=== PATIENT | female | born 1985 | race American Indian/Alaskan Native ===

== ENCOUNTER 2019-09-01 15:06 | Emergency (ER) | payer OTHER ==
[2019-09-01 16:18] LABS: Basophils % (Auto) 0.4 % (0.0-1.8); Eosinophils # (Auto) 0.1 K/mm3 (0.0-0.4); Eosinophils % (Auto) 0.8 % (0.0-4.3); Hematocrit 36.2 % (30.3-42.9); Hemoglobin 11.8 gm/dl (10.1-14.3); Lymphocytes # (Auto) 3.2 K/mm3 (1.2-5.4); Lymphocytes % (Auto) 33.3 % (13.4-35.0); Mean Corpuscular HGB Conc 33 % (30-34); Mean Corpuscular Volume 87 fl (79-97); Monocytes # (Auto) 0.5 K/mm3 (0.0-0.8); Monocytes % (Auto) 5.1 % (0.0-7.3); Platelet Count 301 K/mm3 (140-440); Red Blood Count 4.16 M/mm3 (3.65-5.03); Red Cell Distribution Width 14.1 % (13.2-15.2)
[2019-09-01 16:38] LABS: BUN/Creatinine Ratio 10; Blood Urea Nitrogen 10 mg/dL (7-17); Calcium 9.5 mg/dL (8.4-10.2); Hemolysis Index 1
--- NOTE | 2019-09-01 20:09 | Emergency Department Report ---
ED General Adult HPI - General Chief complaint: Extremity Injury, Upper Stated complaint: NUMB/HBP Time Seen by Provider: 09/01/19 20:05 Source: patient, RN notes reviewed Mode of arrival: Ambulatory Limitations: No Limitations - History of Present Illness Initial comments: The patient is a pleasant 34-year-old female. She is not known to myself previo usly. She does not have a primary care doctor. She states that she is not . She states that she has not delivered or given within the past 6 weeks. She is right-hand dominant. She presents to the ER with a complaint of nontraumatic resolved bilateral upper forearm dysesthesia. This started at around 230 this afternoon. It is now resolved. She also describes a sensation of "cloudiness and heaviness." This was a global sensation. It is now resolved. She denies headache, neck pain, chest pain, abdominal pain, shortness of breath. She also denied focal extremity weakness and or numbness. Her symptoms are now resolved. She does not have any complaints at this time. She feels improved. No recent heavy lifting. -: Gradual, hour(s) Location: left, right, upper extremity Consistency: now resolved Improves with: none Worsens with: none Associated Symptoms: denies other symptoms - Related Data Allergies Allergy/AdvReac Type Severity Reaction Status Date / Time No Known Allergies Allergy Verified 09/01/19 15:15 ED Review of Systems ROS: Stated complaint: NUMB/HBP Other details as noted in HPI Constitutional: see HPI Eyes: as per HPI ENT: as per HPI Respiratory: see HPI Cardiovascular: as per HPI Endocrine: see HPI Gastrointestinal: as per HPI Genitourinary: as per HPI Musculoskeletal: as per HPI Skin: as per HPI Neurological: as per HPI Psychiatric: as per HPI Hematological/Lymphatic: as per HPI ED Past Medical Hx - Social History Smoking Status: Never Smoker Substance Use Type: None ED Physical Exam - General Limitations: No Limitations General appearance: alert, in no apparent distress, obese - Head Head exam: Present: atraumatic, normocephalic - Eye Eye exam: Present: normal appearance, PERRL, EOMI, other (Visual acuity intact to finger counting, color perception, reading at a close distance). Absent: nystagmus - ENT ENT exam: Present: normal exam, normal orophraynx, mucous membranes moist, normal external ear exam - Neck Neck exam: Present: normal inspection, full ROM. Absent: tenderness, meningismus - Respiratory Respiratory exam: Present: normal lung sounds bilaterally. Absent: respiratory distress - Cardiovascular Cardiovascular Exam: Present: regular rate, normal rhythm, normal heart sounds. Absent: bradycardia, tachycardia, irregular rhythm, systolic murmur, diastolic murmur, rubs, gallop - GI/Abdominal GI/Abdominal exam: Present: soft. Absent: distended, tenderness, guarding, rebound, rigid, pulsatile mass - Extremities Exam Extremities exam: Present: normal inspection, full ROM, other (2+ pulses noted in the bilateral upper and lower extremities. There is no palpable cord. negative Homans sign. Muscular compartments are soft. The pelvis is stable.). Absent: pedal edema, calf tenderness - Back Exam Back exam: Present: normal inspection, full ROM. Absent: tenderness, CVA tenderness (R), CVA tenderness (L), paraspinal tenderness, vertebral tenderness - Neurological Exam Neurological exam: Present: alert (Able to add 5+5, multiply 55, subtract 100- 7), oriented X3, normal gait, other (There is no facial droop. The tongue is midline. Extraocular movements are intact bilaterally. There is 5 out of 5 strength in bilateral upper and lower extremities. Sensation is intact to light touch bilateral upper and lower extremities. There is no past-pointing. There is no pronator drift. There is normal [id number]. There is a normal gait.). Absent: motor sensory deficit - Psychiatric Psychiatric exam: Present: normal affect, normal mood - Skin Skin exam: Present: warm, dry, intact, normal color. Absent: rash ED Course Vital Signs 09/01/19 09/01/19 09/01/19 15:10 20:32 20:39 Temperature 97.9 F 97.9 F Pulse Rate 111 H 71 Respiratory 18 18 Rate Blood Pressure 155/82 Blood Pressure 157/87 153/86 [Right] O2 Sat by Pulse 99 99 Oximetry ED Medical Decision Making - Lab Data Result diagrams: 09/01/19 16:03 09/01/19 16:03 Vital Signs 09/01/19 09/01/19 09/01/19 15:10 20:32 20:39 Temperature 97.9 F 97.9 F Pulse Rate 111 H 71 Respiratory 18 18 Rate Blood Pressure 155/82 Blood Pressure 157/87 153/86 [Right] O2 Sat by Pulse 99 99 Oximetry Lab Results 09/01/19 09/01/19 09/01/19 Range/Units 15:24 16:03 16:03 WBC 9.7 (4.5-11.0) K/mm3 RBC 4.16 (3.65-5.03) M/mm3 Hgb 11.8 (10.1-14.3) gm/dl Hct 36.2 (30.3-42.9) % MCV 87 (79-97) fl MCH 28 (28-32) pg MCHC 33 (30-34) % RDW 14.1 (13.2-15.2) % Plt Count 301 (140-440) K/mm3 Lymph % (Auto) 33.3 (13.4-35.0) % [place] % (Auto) 5.1 (0.0-7.3) % Eos % (Auto) 0.8 (0.0-4.3) % Baso % (Auto) 0.4 (0.0-1.8) % Lymph # 3.2 (1.2-5.4) K/mm3 [place] # 0.5 (0.0-0.8) K/mm3 Eos # 0.1 (0.0-0.4) K/mm3 Baso # 0.0 (0.0-0.1) K/mm3 Seg Neutrophils % 60.4 (40.0-70.0) % Seg Neutrophils # 5.9 (1.8-7.7) K/mm3 Sodium 137 (137-145) mmol/L Potassium 4.6 (3.6-5.0) mmol/L Chloride 98.6 (98-107) mmol/L Carbon Dioxide 23 (22-30) mmol/L Anion Gap 20 mmol/L BUN 10 (7-17) mg/dL Creatinine 1.0 (0.7-1.2) mg/dL Estimated GFR > 60 ml/min BUN/Creatinine Ratio 10 % Glucose 88 (65-100) mg/dL POC Glucose 83 (70-105) Calcium 9.5 (8.4-10.2) mg/dL - Medical Decision Making Differential diagnosis, including but not limited to: Peripheral neuropathy, elevated blood pressure, electrolyte derangement Assessment and plan: 34-year-old female with resolved bilateral upper forearm numbness, now resolved, GCS 15, NIH score 0. Physical examination is unremarkable. She states she is not and has not delivered in the past 6 weeks. Elevated blood pressure is reviewed and appreciated; please reference the [employer] clinical policy on elevated blood pressure/hypertension which is not acutely symptomatic. Her neurologic examination is benign, within normal limits, and unremarkable. She is resting comfortably, playing on her cellular phone, and in no acute distress. Explained that the patient does not have an emergency medical condition at this time, and that she could follow-up with an outpatient primary care doctor or neurologist. She endorsed understanding. Return precautions are reviewed. Critical care attestation.: If time is entered above; I have spent that time in minutes in the direct care of this critically ill patient, excluding procedure time. ED Disposition Clinical Impression: Elevated blood pressure reading, History of sensory changes Disposition: DC-01 TO HOME OR SELFCARE Is pt being admited?: No Does the pt Need Aspirin: No Condition: Stable Instructions: Peripheral Neuropathy (ED), Hypertension (ED) Additional Instructions: Please follow-up with your primary care doctor or neurologist within the next 2 weeks. Please return to the emergency room right away with new, worsened or different symptoms, or symptoms not present on the initial emergency room evaluation. Avoid consumption of caffeine, energy drinks and stimulants Referrals: CASA BAGLEY MD [Referring] - as needed JAYLNO MELLO MD [Staff Physician] - as needed COOPER ALBERTO MD [Staff Physician] - as needed
[2019-09-01 21:42] VITALS: BP 145/87
== END 2019-09-01 21:47 | disposition home or self-care (01) ==
LOC: ED 15:06
DX: R03.0 Elevated blood-pressure reading, without diagnosis of hypertension (principal); Z86.69 Personal history of other diseases of the nervous system and sense organs
CPT/HCPCS: 36415; 80048; 82962; 85025